=== PATIENT | male | born 1940 | race Caucasian/White ===

== ENCOUNTER 2019-08-26 11:53 | Emergency (ER) | payer MEDICARE ==
[2019-08-26] MEDS ORDERED: Lidocaine 1% 20 ML MDV INFILT ONE (11:54)
--- NOTE | 2019-08-26 12:52 | EDM.PDOC ---
ED HPI GENERAL MEDICAL PROBLEM - General Chief Complaint: Laceration Stated Complaint: LACERATION ON FOREHEAD Time Seen by Provider: 08/26/19 12:45 Source of Information: Reports: Patient History Limitations: Reports: No Limitations - History of Present Illness INITIAL COMMENTS - FREE TEXT/NARRATIVE: 78-year-old male who reports that at 10 AM today he was getting into the tub and he grabbed the grab bar with his hand and his hand slipped on the grab bar and he fell forward striking his head as a wall. He did not feel weak or dizzy prior to falling. There was no loss of consciousness. He has no pain in the area. He rates pain as a 0/10. He denies any neck pain as well. No nausea or vomiting. Vision problems. No arm or leg weakness out of the ordinary. He reports that he does have somewhat poor balance and some weakness in his legs but this is chronic and unchanged. He has been eating and drinking normally. No chronic anticoagulation other than aspirin. There are no other associated signs or symptoms. There are no other modifying factors. Onset: Today (10 AM) Duration: Constant Location: Reports: Head, Face (Left eyebrow) Quality: Reports: Other (No pain at rest) Improves with: Reports: None Worsens with: Reports: Movement (Mild stinging with palpation) Context: Reports: Trauma Associated Symptoms: Reports: No Other Symptoms Treatments [employer]: Reports: Dressing(s), Other (see below) (Nothing) - Related Data Allergies Allergy/AdvReac Type Severity Reaction Status Date / Time No Known Allergies Allergy Verified 08/26/19 12:04 Home Meds: Home Meds Aspirin [Jose Chewable] 81 mg PO DAILY 08/26/19 [History] Dutasteride 0.5 mg BEDTIME 08/26/19 [History] Glimepiride 4 mg DAILY 08/26/19 [History] Levothyroxine [Synthroid] 50 mcg PO MOTUWETHFRSA 08/26/19 [History] Levothyroxine [Synthroid] 100 mcg PO RIVERA 08/26/19 [History] Metoprolol Succinate [Toprol XL] 12.5 mg PO DAILY 08/26/19 [History] SitaGLIPtin [Januvia] 100 mg ACDINNER 08/26/19 [History] Terazosin [Hytrin] 10 mg PO BEDTIME 08/26/19 [History] allopurinoL [Zyloprim] 150 mg BEDTIME 08/26/19 [History] amLODIPine [Norvasc] 10 mg PO BEDTIME 08/26/19 [History] atorvaSTATin Calcium [Lipitor] 40 mg PO BEDTIME 08/26/19 [History] hydroCHLOROthiazide [Hydrochlorothiazide] 25 mg DAILY 08/26/19 [History] metFORMIN [Glucophage XR] 500 mg PO PCLUNCH 08/26/19 [History] Past Medical History Cardiovascular History: Reports: Bypass, CAD, High Cholesterol, Hypertension Gastrointestinal History: Reports: GERD Genitourinary History: Reports: BPH, Prostate Disorder, Renal Calculus Musculoskeletal History: Reports: Arthritis Endocrine/Metabolic History: Reports: Diabetes, Type II, Hypothyroidism Hematologic History: Reports: Blood Transfusion(s) - Infectious Disease History Infectious Disease History: Reports: Chicken Pox, Measles, Mumps, Other (See Below) Other Infectious Disease History: polio - Past Surgical History Cardiovascular Surgical History: Reports: Coronary Artery Bypass GI Surgical History: Reports: None Dermatological Surgical History: Reports: Other (See Below) (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) Social & Family History - Tobacco Use Smoking Status *Q: Never Smoker - Caffeine Use Caffeine Use: Reports: Soda - Alcohol Use Alcohol Use History: No - Living Situation & Occupation Living situation: Reports: Occupation: Retired ([employer]) ED ROS GENERAL - Review of Systems Review Of Systems: See Below Constitutional: Reports: No Symptoms HEENT: Reports: No Symptoms Respiratory: Reports: No Symptoms Cardiovascular: Reports: No Symptoms Endocrine: Reports: No Symptoms GI/Abdominal: Reports: No Symptoms : Reports: No Symptoms Musculoskeletal: Reports: No Symptoms Skin: Reports: Wound (Laceration to left eyebrow) Neurological: Reports: No Symptoms Hematologic/Lymphatic: Reports: No Symptoms Immunologic: Reports: Other (Greater than 5 years since his last tetanus immunization.) ED EXAM, SKIN/RASH Exam: See Below Exam Limited By: No Limitations General Appearance: Alert, WD/WN, No Apparent Distress Eye Exam: Bilateral Eye: EOMI, Normal Inspection (Sclera are anicteric) Ears: Normal External Exam, Hearing Grossly Normal Nose: Normal Inspection, Normal Mucosa, No Blood Throat/Mouth: Normal Inspection, Normal Oropharynx, Normal Voice, No Airway Compromise Head: Normocephalic, Other (Left eyebrow area swelling with laceration that is 5 cm in length. No crepitus or bony deformity noted.) Neck: Normal Inspection, Supple, Non-Tender, Full Range of Motion Respiratory/Chest: No Respiratory Distress, Lungs Clear, Normal Breath Sounds, No Accessory Muscle Use, Chest Non-Tender Cardiovascular: Normal Peripheral Pulses, Regular Rate, Rhythm, No Murmur Peripheral Pulses: 2+: Radial (L), Radial (R) GI/Abdominal: Normal Bowel Sounds, Soft, Non-Tender Back Exam: Normal Inspection. No: Vertebral Tenderness Extremities: Normal Inspection, Normal Range of Motion, Non-Tender, No Pedal Edema, Normal Capillary Refill Neurological: Alert, Oriented, CN II-XII Intact, Normal Cognition, No Motor/ Sensory Deficits Psychiatric: Normal Affect Skin: Warm, Dry, Normal Color, No Rash Location, Skin: Face (Left eyebrow area) Characteristics: Linear (Laceration to subcutaneous tissue. 5 cm in length.) ED SKIN PROCEDURES - Laceration/Wound Repair Left Lateral Forehead Appearance: Subcutaneous (Left lateral supraorbital area just above the eyebrow. ) Distal NVT: Neuro & Vascular Intact Anesthetic Type: Local Local Anesthesia - Lidocaine (Xylocaine): 1% Plain Local Anesthetic Volume: 4cc Skin Prep: Chlorhexidine (Hibiciens), Saline Saline Irrigation (cc's): 250 Exploration/Debridement/Repair: No Foreign Material Found Closed with: Sutures Lac/Wound length In cm: 5 Suture Size: 5-0 # of Sutures: 6 Suture Type: Prolene, Running, Simple Drain Placement: No Sterile Dressing Applied: Nurse Tetanus Status Addressed: Yes (Patient given Tdap.) Complications: No Course - Vital Signs Last Recorded V/S: Last Vital Signs Temp 35.9 C L 08/26/19 11:57 Pulse 62 08/26/19 13:46 Resp 18 08/26/19 13:46 BP 144/52 H 08/26/19 13:46 Pulse Ox 97 08/26/19 13:46 - Orders/Labs/Meds Orders: Active Orders 24 hr Category Date Time Status Vaccines to be Administered [RC] PER UNIT ROUTINE Care 08/26/19 13:03 Active Cervical Spine wo Cont [CT] Stat Exams 08/26/19 13:02 Taken Head wo Cont [CT] Stat Exams 08/26/19 13:02 Taken Bacitracin [Bacitracin Oint 1 GM] Med 08/26/19 13:50 Once 1 dose TOP ONETIME ONE Meds: Medications Discontinued Medications Generic Name Dose Route Start Last Admin Trade Name Gregg PRN Reason Stop Dose Admin Diphtheria/Tetanus/Acell Pertussis 0.5 ml 08/26/19 13:03 08/26/19 13:30 Adacel IM 08/26/19 13:04 0.5 ml .ONCE ONE Administration - Radiology Interpretation Free Text/Narrative:: CT scan of head showed no acute intracranial pathology. There is some sinus disease. This was per the [facility] radiologist CT scan of cervical spine showed no acute fracture. There were degenerative changes and evidence of chronic anterior wedging of T1-T3. This was per the [facility] radiologist - Re-Assessments/Exams Free Text/Narrative Re-Assessment/Exam: 08/26/19 13:40: Patient with laceration to left lateral eyebrow that was repaired. He tolerated this well without any apparent palpitations. There was no evidence of fracture. No acute problems are seen on the CT scans. He has remained neurologically and hemodynamically stable in the emergency department. Wound care instructions were given. Suture removal in 7 days. Precautions and reasons for return to the emergency department were discussed with the patient and his while they were in the emergency department and were detailed in the patient's discharge instructions. Departure - Departure Time of Disposition: 13:48 Disposition: Home, Self-Care 01 Condition: Good (Improved) Clinical Impression: Contusion of left eyebrow Qualifiers: Encounter type: initial encounter Qualified Code(s): S00.12XA - Contusion of left eyelid and periocular area, initial encounter Fall on same level from slipping Qualifiers: Encounter type: initial encounter Qualified Code(s): W01.0XXA - Fall on same level from slipping, tripping and stumbling without subsequent striking against object, initial encounter Laceration of left eyebrow without complication Qualifiers: Encounter type: initial encounter Qualified Code(s): S01.112A - Laceration without foreign body of left eyelid and periocular area, initial encounter - Discharge Information Instructions: Fall Prevention in the Home, Adult, [id number], Head Injury, Adult, Laceration Care, Adult, [id number], Sutures, Jill, or Adhesive Wound Closure, [id number], VIS, Tetanus, Diphtheria, and Pertussis (Tdap) - CDC (05/21/2014) Referrals: Javier Anne MD [Primary Care Provider] - Forms: ED Department Discharge Additional Instructions: Do not get the wound wet for 3 days. After 3 days, you may get the wound wet but do not immerse the wound in water until the sutures are out. Suture removal in 7 days. You may take Tylenol 1000 mg by mouth every 6 hours as needed for pain. Back to the emergency department for marked increase in pain, redness, increased swelling, unrelenting vomiting or any other concerning sign or symptom. You were given a Tdap immunization today to bring your tetanus immunization status up-to-date. Sepsis Event Note - Evaluation Sepsis Screening Result: No Definite Risk - Focused Exam Vital Signs: Vital Signs Temp Pulse Resp BP Pulse Ox 08/26/19 13:46 62 18 144/52 H 97 08/26/19 11:57 35.9 C L 62 18 136/65 99 Date Exam was Performed: 08/26/19 Time Exam was Performed: 13:51 - My Orders Last 24 Hours: My Active Orders 08/26/19 13:02 Cervical Spine wo Cont [CT] Stat Head wo Cont [CT] Stat 08/26/19 13:03 Vaccines to be Administered [RC] PER UNIT ROUTINE 08/26/19 13:50 Bacitracin [Bacitracin Oint 1 GM] 1 dose TOP ONETIME ONE - Assessment/Plan Last 24 Hours: My Active Orders 08/26/19 13:02 Cervical Spine wo Cont [CT] Stat Head wo Cont [CT] Stat 08/26/19 13:03 Vaccines to be Administered [RC] PER UNIT ROUTINE 08/26/19 13:50 Bacitracin [Bacitracin Oint 1 GM] 1 dose TOP ONETIME ONE
[2019-08-26] MEDS ORDERED: Diphtheria,Pertussis(Acell),Tetanus Vaccine 0.5 ML SDV IM ONE (13:03)
[2019-08-26] MEDS ORDERED: Bacitracin Oint 1 GM U/D Packet TOP ONE (13:50)
== END 2019-08-26 13:55 | disposition home or self-care (01) ==
LOC: FB.ED 11:53
DX: S01.112A Laceration without foreign body of left eyelid and periocular area, initial encounter (principal); I10 Essential (primary) hypertension; E11.9 Type 2 diabetes mellitus without complications; E03.9 Hypothyroidism, unspecified; E78.00 Pure hypercholesterolemia, unspecified; I25.10 Atherosclerotic heart disease of native coronary artery without angina pectoris; Z95.5 Presence of coronary angioplasty implant and graft; Z23 Encounter for immunization; Z79.82 Long term (current) use of aspirin; Z79.899 Other long term (current) drug therapy; W01.0XXA Fall on same level from slipping, tripping and stumbling without subsequent striking against object, initial encounter
CPT/HCPCS: 12013; 70450; 72125; 90471; 90715; 99283-25; J2001

== ENCOUNTER 2022-10-17 22:01 | Emergency (ER) | payer MEDICARE ==
[2022-10-17] MEDS ORDERED: Insulin Glargine,Human Rec. Analog 100 Units/ML 3 ML Pen SUBCUT STA (23:10)
[2022-10-17] MEDS ORDERED: 50% Dextrose in Water 50 ML Syringe IVPUSH PRN (23:10)
[2022-10-17] MEDS ORDERED: Glucagon,Human Recombinant 1 MG Vial IM PRN (23:10)
[2022-10-17] MEDS ORDERED: Sodium Chloride 0.9% 1,000 ML IV SCH (23:15)
[2022-10-17 23:36] LABS: BASOPHILS PERCENT AUTO 0.6 % (0.3-3.8); EOSINOPHILS ABSOLUTE AUTO 0.1 x10-3/uL (0.0-0.6); HEMATOCRIT 27.7 % (38.3-50.1); HEMOGLOBIN 9.2 g/dL (12.9-17.7); LYMPHOCYTES ABSOLUTE AUTO 0.6 x10-3/uL (0.5-4.5); LYMPHOCYTES PERCENT AUTO 11.3 % (15.8-45.3); MEAN CORPUSCULAR HEMOGLOBIN 31.2 pg (27.0-33.3); MEAN CORPUSCULAR HGB CONC 33.1 g/dL (28.7-35.3); MEAN CORPUSCULAR VOLUME 94.1 fL (80.8-98.7); MEAN PLATELET VOLUME 7.9 fL (6.7-11.0); MONOCYTES ABSOLUTE AUTO 0.5 x10-3/uL (0.0-1.2); MONOCYTES PERCENT AUTO 9.6 % (5.5-15.2); NEUTROPHILS ABSOLUTE AUTO 4.2 x10-3/uL (1.7-6.9); NEUTROPHILS PERCENT AUTO 77.5 % (40.3-71.8); PLATELET COUNT,PLT 439 x10(3)uL (117-477); RED BLOOD CELL COUNT 2.95 x10(6)uL (3.90-5.90); RED CELL DISTRIBUTION WIDTH 15.9 % (12.4-15.0); WHITE BLOOD CELL COUNT,WBC 5.4 x10-3/uL (3.2-10.1)
[2022-10-17 23:55] LABS: A/G RATIO 0.4; ALANINE AMINOTRANSFERASE,ALT 39 U/L (12-36); ALBUMIN 2.2 g/dL (3.2-4.6); ALKALINE PHOSPHATASE 105 IU/L (56-112); ASPARTATE AMNIOTRANSFERASE,AST 33 IU/L (5-25); BILIRUBIN TOTAL 0.4 mg/dL (0.1-1.3); BLOOD UREA NITROGEN,BUN 46 mg/dL (7-18); BUN/CREATININE RATIO 14.4 (9-20); CALCIUM 8.7 mg/dL (8.6-10.2); CARBON DIOXIDE,CO2 23 mmol/L (21-32); CHLORIDE,CL 100 mmol/L (100-110); ESTIMATED GFR 18 mL/min (>60); GLUCOSE RANDOM 344 mg/dL (80-116); POTASSIUM,K 4.6 mmol/L (3.5-5.3); PROTEIN TOTAL,TP 7.2 g/dL (6.0-8.0); SODIUM,NA 134 mmol/L (135-145)
[2022-10-18 00:04] LABS: BILIRUBIN,URINE NEGATIVE (NEGATIVE); GLUCOSE,URINE >1000 mg/dL (NORMAL); KETONES,URINE NEGATIVE (NEGATIVE); LEUKOCYTE ESTERASE,URINE LARGE (NEGATIVE); NITRITE,URINE NEGATIVE (NEGATIVE); OCCULT BLOOD,URINE LARGE (NEGATIVE); PROTEIN,URINE TRACE mg/dL (NEGATIVE); UROBILINOGEN,URINE NORMAL (NEGATIVE)
[2022-10-18 00:06] LABS: CREATININE 3.2 mg/dL (0.70-1.30)
[2022-10-18 00:10] LABS: APPEARANCE,URINE CLOUDY (CLEAR); BACTERIA,URINE FEW (NS); COLOR,URINE YELLOW (YELLOW); SQUAMOUS EPITHELIAL CELLS,UR OCCASIONAL (NS,R,O); WBC,URINE 50-75 (0-5)
[2022-10-18] MEDS ORDERED: Sodium Chloride 0.9% 1,000 ML IV ONE (00:20)
[2022-10-18] MEDS ORDERED: cefTRIAXone 2 GM Vial IVPUSH ONE (00:59)
== END 2022-10-18 04:48 ==
LOC: FB.ED 22:01
DX: N17.9 Acute kidney failure, unspecified (principal); N39.0 Urinary tract infection, site not specified; E11.65 Type 2 diabetes mellitus with hyperglycemia; N12 Tubulo-interstitial nephritis, not specified as acute or chronic; N32.0 Bladder-neck obstruction; D64.9 Anemia, unspecified; I25.10 Atherosclerotic heart disease of native coronary artery without angina pectoris; E78.00 Pure hypercholesterolemia, unspecified; I10 Essential (primary) hypertension; K21.9 Gastro-esophageal reflux disease without esophagitis; N40.0 Benign prostatic hyperplasia without lower urinary tract symptoms; E03.9 Hypothyroidism, unspecified; Z95.1 Presence of aortocoronary bypass graft; Z79.82 Long term (current) use of aspirin; Z79.899 Other long term (current) drug therapy
CPT/HCPCS: 36415; 51702; 74176; 80053; 81001; 82947; 83605; 83735; 85025; 86140; 87040; 87086; 87088; 87186; 96361; 96374; 99285; J0696; J1815; J7030; 99284

== ENCOUNTER 2022-11-13 17:30 | Emergency (ER) | payer MEDICARE ==
[2022-11-13 19:29] LABS: BILIRUBIN,URINE NEGATIVE (NEGATIVE); GLUCOSE,URINE >1000 mg/dL (NORMAL); KETONES,URINE NEGATIVE (NEGATIVE); LEUKOCYTE ESTERASE,URINE LARGE (NEGATIVE); NITRITE,URINE POSITIVE (NEGATIVE); OCCULT BLOOD,URINE LARGE (NEGATIVE); PROTEIN,URINE 30 mg/dL (NEGATIVE); UROBILINOGEN,URINE NORMAL (NEGATIVE)
[2022-11-13 19:34] LABS: APPEARANCE,URINE CLOUDY (CLEAR); BACTERIA,URINE MANY (NS); COLOR,URINE YELLOW (YELLOW); SQUAMOUS EPITHELIAL CELLS,UR FEW (NS,R,O); WBC,URINE 50-75 (0-5)
[2022-11-13 19:35] LABS: YEAST,URINE FEW (NS)
== END 2022-11-13 19:20 | disposition home or self-care (01) ==
LOC: FB.ED 17:30
DX: T83.511A Infection and inflammatory reaction due to indwelling urethral catheter, initial encounter (principal); N39.0 Urinary tract infection, site not specified; I25.10 Atherosclerotic heart disease of native coronary artery without angina pectoris; E78.00 Pure hypercholesterolemia, unspecified; I10 Essential (primary) hypertension; N40.0 Benign prostatic hyperplasia without lower urinary tract symptoms; E03.9 Hypothyroidism, unspecified; Z79.84 Long term (current) use of oral hypoglycemic drugs; Z95.1 Presence of aortocoronary bypass graft; Z79.82 Long term (current) use of aspirin; Z79.899 Other long term (current) drug therapy
CPT/HCPCS: 81001; 87086; 87088; 87186; 99283

== ENCOUNTER 2022-11-15 20:35 | Emergency (ER) | payer MEDICARE ==
[2022-11-15] MEDS ORDERED: Tranexamic Acid 1,000 MG in Sodium Chloride 0.9% 50 ML IV ONE (23:28)
== END 2022-11-16 01:04 | disposition home or self-care (01) ==
LOC: FB.ED 20:35
DX: N30.91 Cystitis, unspecified with hematuria (principal); I25.810 Atherosclerosis of coronary artery bypass graft(s) without angina pectoris; E78.00 Pure hypercholesterolemia, unspecified; I10 Essential (primary) hypertension; M19.90 Unspecified osteoarthritis, unspecified site; E11.9 Type 2 diabetes mellitus without complications; E03.9 Hypothyroidism, unspecified; Z79.899 Other long term (current) drug therapy; Z79.82 Long term (current) use of aspirin; Z79.84 Long term (current) use of oral hypoglycemic drugs; Z88.8 Allergy status to other drugs, medicaments and biological substances
CPT/HCPCS: 96365; 99283; J3490

== ENCOUNTER 2022-11-17 08:08 | Emergency (ER) | payer MEDICARE ==
[2022-11-17 09:03] LABS: BASOPHILS PERCENT AUTO 0.5 % (0.3-3.8); EOSINOPHILS ABSOLUTE AUTO 0.1 x10-3/uL (0.0-0.6); EOSINOPHILS PERCENT AUTO 1.2 % (0.1-6.8); HEMATOCRIT 25.9 % (38.3-50.1); HEMOGLOBIN 8.5 g/dL (12.9-17.7); LYMPHOCYTES ABSOLUTE AUTO 1.2 x10-3/uL (0.5-4.5); LYMPHOCYTES PERCENT AUTO 13.6 % (15.8-45.3); MEAN CORPUSCULAR HEMOGLOBIN 31.3 pg (27.0-33.3); MEAN CORPUSCULAR HGB CONC 32.8 g/dL (28.7-35.3); MEAN CORPUSCULAR VOLUME 95.4 fL (80.8-98.7); MEAN PLATELET VOLUME 7.8 fL (6.7-11.0); MONOCYTES ABSOLUTE AUTO 0.5 x10-3/uL (0.0-1.2); MONOCYTES PERCENT AUTO 5.8 % (5.5-15.2); NEUTROPHILS ABSOLUTE AUTO 6.8 x10-3/uL (1.7-6.9); NEUTROPHILS PERCENT AUTO 78.9 % (40.3-71.8); PLATELET COUNT,PLT 227 x10(3)uL (117-477); RED BLOOD CELL COUNT 2.71 x10(6)uL (3.90-5.90); RED CELL DISTRIBUTION WIDTH 18.1 % (12.4-15.0); WHITE BLOOD CELL COUNT,WBC 8.6 x10-3/uL (3.2-10.1)
[2022-11-17] MEDS: Lidocaine 2% HCl 6 ML Jel ONE (09:15)
[2022-11-17 09:19] LABS: A/G RATIO 0.8; ALANINE AMINOTRANSFERASE,ALT 13 U/L (12-36); ALBUMIN 2.9 g/dL (3.2-4.6); ALKALINE PHOSPHATASE 108 IU/L (56-112); ASPARTATE AMNIOTRANSFERASE,AST 11 IU/L (5-25); BILIRUBIN TOTAL 0.4 mg/dL (0.1-1.3); BLOOD UREA NITROGEN,BUN 36 mg/dL (7-18); BUN/CREATININE RATIO 12.9 (9-20); CALCIUM 8.5 mg/dL (8.6-10.2); CARBON DIOXIDE,CO2 25 mmol/L (21-32); CHLORIDE,CL 105 mmol/L (100-110); ESTIMATED GFR 22 mL/min (>60); GLUCOSE RANDOM 214 mg/dL (80-116); POTASSIUM,K 4.1 mmol/L (3.5-5.3); PROTEIN TOTAL,TP 6.4 g/dL (6.0-8.0); SODIUM,NA 138 mmol/L (135-145)
[2022-11-17 09:21] LABS: CREATININE 2.8 mg/dL (0.70-1.30)
[2022-11-17 10:51] LABS: BILIRUBIN,URINE SMALL (NEGATIVE); GLUCOSE,URINE >1000 mg/dL (NORMAL); KETONES,URINE 15 mg/dL (NEGATIVE); LEUKOCYTE ESTERASE,URINE MODERATE (NEGATIVE); NITRITE,URINE POSITIVE (NEGATIVE); OCCULT BLOOD,URINE LARGE (NEGATIVE); PH,URINE 6.5 (5.0-6.5); PROTEIN,URINE 500 mg/dL (NEGATIVE); UROBILINOGEN,URINE 1 mg/dL (NEGATIVE)
[2022-11-17 10:57] LABS: APPEARANCE,URINE CLOUDY (CLEAR); BACTERIA,URINE MANY (NS); COLOR,URINE BROWN (YELLOW); RBC,URINE PACKED (0-5); SQUAMOUS EPITHELIAL CELLS,UR OCCASIONAL (NS,R,O); WBC,URINE >100 (0-5)
[2022-11-17] MEDS ORDERED: Sodium Chloride 0.9% 10 ML Syringe FLUSH PRN (11:08)
[2022-11-17] MEDS ORDERED: cefTRIAXone 2 GM Vial IVPUSH ONE (11:34)
[2022-11-17] MEDS: Sodium Chloride 0.9% 500 ML IV ONE (11:50)
[2022-11-17] MEDS: cefTRIAXone 1 GM Vial IVPUSH ONE (12:06)
[2022-11-17] MEDS: Sodium Chloride 0.9% 1,000 ML IV SCH (12:21)
== END 2022-11-17 15:20 ==
LOC: FB.ED 08:08
DX: R31.0 Gross hematuria (principal); R33.9 Retention of urine, unspecified; N39.0 Urinary tract infection, site not specified; E03.9 Hypothyroidism, unspecified; E11.9 Type 2 diabetes mellitus without complications; I10 Essential (primary) hypertension; K21.9 Gastro-esophageal reflux disease without esophagitis; Z88.8 Allergy status to other drugs, medicaments and biological substances; Z79.82 Long term (current) use of aspirin; Z79.84 Long term (current) use of oral hypoglycemic drugs
CPT/HCPCS: 36415; 51702; 80053; 81001; 85025; 96361; 96374; 99285; A9270; J0696; J7030; J7040

== ENCOUNTER 2022-11-24 08:00 | Inpatient (IN) | payer MEDICARE ==
[2022-11-24] MEDS ORDERED: Docusate Sodium 100 MG Cap PO PRN (13:32)
[2022-11-24] MEDS ORDERED: Acetaminophen 500 MG Tab PO PRN (13:32)
[2022-11-24] MEDS ORDERED: 50% Dextrose in Water 50 ML Syringe IVPUSH PRN (13:32)
[2022-11-24] MEDS ORDERED: Glucagon,Human Recombinant 1 MG Vial IM PRN (13:32)
[2022-11-24] MEDS ORDERED: Insulin Glargine,Human Rec. Analog 100 Units/ML 3 ML Pen SUBCUT ONE (20:26)
[2022-11-24] MEDS: atorvaSTATin 40 MG Tab PO SCH (20:31)
[2022-11-24] MEDS: Terazosin 5 MG Cap PO SCH (20:31)
[2022-11-24] MEDS: Insulin Glargine,Human Rec. Analog 100 Units/ML 3 ML Pen SUBCUT SCH (20:32)
[2022-11-25] MEDS: Levothyroxine 50 MCG Tab PO SCH (06:03)
[2022-11-25] MEDS: glipiZIDE 5 MG Tab.ER PO SCH (08:27)
[2022-11-25] MEDS: Aspirin 81 MG Tab.EC PO SCH (08:27)
[2022-11-25] MEDS: Dutasteride 0.5 MG Cap PO SCH (08:27)
[2022-11-25] MEDS: Hydrochlorothiazide 25 MG Tab PO SCH (08:27)
[2022-11-25] MEDS: Empagliflozin 10 MG Tab PO SCH (08:28)
[2022-11-25] MEDS: Allopurinol 300 MG Tab PO SCH (08:29)
[2022-11-25] MEDS: Metoprolol Succinate 25 MG Tab.ER PO SCH (11:00)
[2022-11-25] MEDS: amLODIPine 10 MG Tab PO SCH (12:57)
[2022-11-25] MEDS: atorvaSTATin 40 MG Tab PO SCH (20:57)
[2022-11-25] MEDS: Insulin Glargine,Human Rec. Analog 100 Units/ML 3 ML Pen SUBCUT SCH (20:57)
[2022-11-25] MEDS: Terazosin 5 MG Cap PO SCH (21:23)
[2022-11-26] MEDS: Levothyroxine 50 MCG Tab PO SCH (06:42)
[2022-11-26] MEDS: Dutasteride 0.5 MG Cap PO SCH (08:31)
[2022-11-26] MEDS: Aspirin 81 MG Tab.EC PO SCH (08:31)
[2022-11-26] MEDS: Empagliflozin 10 MG Tab PO SCH (08:31)
[2022-11-26] MEDS: glipiZIDE 5 MG Tab.ER PO SCH (08:31)
[2022-11-26] MEDS: Hydrochlorothiazide 25 MG Tab PO SCH (08:31)
[2022-11-26] MEDS: Allopurinol 300 MG Tab PO SCH (08:32)
[2022-11-26] MEDS: Metoprolol Succinate 25 MG Tab.ER PO SCH (08:32)
[2022-11-26] MEDS ORDERED: Potassium Chloride 10 MEQ Tab.ER PO SCH (09:00)
[2022-11-26] MEDS: amLODIPine 10 MG Tab PO SCH (12:59)
[2022-11-26] MEDS: Insulin Glargine,Human Rec. Analog 100 Units/ML 3 ML Pen SUBCUT SCH (20:58)
[2022-11-26] MEDS: Terazosin 5 MG Cap PO SCH (21:00)
[2022-11-26] MEDS: atorvaSTATin 40 MG Tab PO SCH (21:01)
[2022-11-27] MEDS: Levothyroxine 50 MCG Tab PO SCH (06:23)
[2022-11-27] MEDS: glipiZIDE 5 MG Tab.ER PO SCH (07:59)
[2022-11-27] MEDS: Metoprolol Succinate 25 MG Tab.ER PO SCH (08:02)
[2022-11-27] MEDS: Allopurinol 300 MG Tab PO SCH (08:03)
[2022-11-27] MEDS: Empagliflozin 10 MG Tab PO SCH (08:04)
[2022-11-27] MEDS: Dutasteride 0.5 MG Cap PO SCH (08:04)
[2022-11-27] MEDS: Hydrochlorothiazide 25 MG Tab PO SCH (08:05)
[2022-11-27] MEDS: Aspirin 81 MG Tab.EC PO SCH (08:05)
[2022-11-27] MEDS: amLODIPine 10 MG Tab PO SCH (11:46)
[2022-11-28] MEDS ORDERED: Levothyroxine 100 MCG Tab PO SCH (06:00)
== END 2022-11-27 12:55 | disposition home health service (06) | DRG 948 ==
LOC: FB.MS 12:24
PROVIDERS: ADMIT Student in an Organized Health Care Education/Training Program; ATTEND Family Medicine
PROC: 0T9B70Z Drainage of Bladder with Drainage Device, Via Natural or Artificial Opening (ICD-10-PCS; principal; 2022-11-25)
DX: R53.1 Weakness (principal); N39.0 Urinary tract infection, site not specified; N13.30 Unspecified hydronephrosis; N40.0 Benign prostatic hyperplasia without lower urinary tract symptoms; I25.10 Atherosclerotic heart disease of native coronary artery without angina pectoris; I10 Essential (primary) hypertension; K21.9 Gastro-esophageal reflux disease without esophagitis; E78.5 Hyperlipidemia, unspecified; E03.9 Hypothyroidism, unspecified; E11.65 Type 2 diabetes mellitus with hyperglycemia; R39.14 Feeling of incomplete bladder emptying; M19.91 Primary osteoarthritis, unspecified site; G14 Postpolio syndrome; Z96.0 Presence of urogenital implants; Z95.1 Presence of aortocoronary bypass graft; Z79.4 Long term (current) use of insulin; Z87.442 Personal history of urinary calculi; Z99.81 Dependence on supplemental oxygen; Z79.899 Other long term (current) drug therapy; Z88.8 Allergy status to other drugs, medicaments and biological substances; Z79.82 Long term (current) use of aspirin
CPT/HCPCS: 82947; 97110-GP; 97161-GP; 97165-GO; 97530-GO; 97530-GP; 97535-GO; 99305; 99307; 99315; A9270-GY; J1815-GY

== ENCOUNTER 2023-09-11 10:44 | Emergency (ER) | payer MEDICARE ==
[2023-09-11] MEDS: Lidocaine 2% HCl 6 ML Jel ONE (11:21)
[2023-09-11 11:54] LABS: BILIRUBIN,URINE NEGATIVE (NEGATIVE); GLUCOSE,URINE NORMAL (NORMAL); KETONES,URINE NEGATIVE (NEGATIVE); LEUKOCYTE ESTERASE,URINE LARGE (NEGATIVE); NITRITE,URINE POSITIVE (NEGATIVE); OCCULT BLOOD,URINE LARGE (NEGATIVE); PROTEIN,URINE 100 mg/dL (NEGATIVE); UROBILINOGEN,URINE NORMAL (NEGATIVE)
[2023-09-11 11:55] LABS: APPEARANCE,URINE CLOUDY (CLEAR); BACTERIA,URINE MANY (NS); COLOR,URINE YELLOW (YELLOW); SQUAMOUS EPITHELIAL CELLS,UR OCCASIONAL (NS,R,O); WBC,URINE 75-100 (0-5)
== END 2023-09-11 12:29 | disposition home or self-care (01) ==
LOC: FB.ED 10:44
DX: N39.0 Urinary tract infection, site not specified (principal); I10 Essential (primary) hypertension; E78.00 Pure hypercholesterolemia, unspecified; I25.10 Atherosclerotic heart disease of native coronary artery without angina pectoris; K21.9 Gastro-esophageal reflux disease without esophagitis; E11.9 Type 2 diabetes mellitus without complications; E03.9 Hypothyroidism, unspecified; Z95.5 Presence of coronary angioplasty implant and graft; Z88.8 Allergy status to other drugs, medicaments and biological substances; Z79.890 Hormone replacement therapy; Z79.899 Other long term (current) drug therapy; Z79.82 Long term (current) use of aspirin; Z79.84 Long term (current) use of oral hypoglycemic drugs
CPT/HCPCS: 81001; 87086; 87088; 87186; 99283; A9270-GY

== ENCOUNTER 2024-01-21 17:58 | Emergency (ER) | payer MEDICARE ==
[2024-01-21 19:38] LABS: APPEARANCE,URINE SLIGHTLY CLOUDY (CLEAR); BILIRUBIN,URINE NEGATIVE (NEGATIVE); COLOR,URINE ORANGE (YELLOW); GLUCOSE,URINE 100 mg/dL (NORMAL); KETONES,URINE NEGATIVE (NEGATIVE); LEUKOCYTE ESTERASE,URINE LARGE (NEGATIVE); NITRITE,URINE POSITIVE (NEGATIVE); OCCULT BLOOD,URINE LARGE (NEGATIVE); PROTEIN,URINE 100 mg/dL (NEGATIVE); UROBILINOGEN,URINE NORMAL (NEGATIVE)
[2024-01-21 19:39] LABS: BACTERIA,URINE FEW (NS); RBC,URINE 50-75 (0-5); SQUAMOUS EPITHELIAL CELLS,UR OCCASIONAL (NS,R,O)
[2024-01-21] MEDS: Ciprofloxacin 500 MG Tab PO ONE (20:33)
== END 2024-01-21 20:38 | disposition home or self-care (01) ==
LOC: FB.ED 17:58
DX: T83.511A Infection and inflammatory reaction due to indwelling urethral catheter, initial encounter (principal); N39.0 Urinary tract infection, site not specified; N32.0 Bladder-neck obstruction; R33.9 Retention of urine, unspecified; I10 Essential (primary) hypertension; I25.10 Atherosclerotic heart disease of native coronary artery without angina pectoris; E78.00 Pure hypercholesterolemia, unspecified; E03.9 Hypothyroidism, unspecified; E11.9 Type 2 diabetes mellitus without complications; Z95.1 Presence of aortocoronary bypass graft; Z79.82 Long term (current) use of aspirin; Z79.899 Other long term (current) drug therapy; Z79.890 Hormone replacement therapy; Z88.8 Allergy status to other drugs, medicaments and biological substances
CPT/HCPCS: 51702; 81001; 87086; 99284; A9270-GY; C1758

== ENCOUNTER 2024-01-22 14:47 | Emergency (ER) | payer MEDICARE | END 2024-01-22 15:47 | disposition home or self-care (01) | LOC: FB.ED 14:47 | DX: R33.9 Retention of urine, unspecified (principal); Z96.0 Presence of urogenital implants; I10 Essential (primary) hypertension; I25.10 Atherosclerotic heart disease of native coronary artery without angina pectoris; E78.00 Pure hypercholesterolemia, unspecified; E11.9 Type 2 diabetes mellitus without complications; E03.9 Hypothyroidism, unspecified; Z95.1 Presence of aortocoronary bypass graft; Z79.4 Long term (current) use of insulin; Z79.890 Hormone replacement therapy; Z79.899 Other long term (current) drug therapy; Z79.82 Long term (current) use of aspirin; Z88.8 Allergy status to other drugs, medicaments and biological substances | CPT/HCPCS: 99283 ==